=== PATIENT | male | born 1990 ===

== ENCOUNTER 2022-03-18 01:09 | Emergency (ER) | payer MEDICAID ==
[2022-03-18] MEDS ORDERED: Sodium Chloride 0.9% 10 ML Syringe FLUSH PRN (01:27)
[2022-03-18] MEDS ORDERED: Iopamidol 612 MG/ML 100 ML Bottle IVPUSH ONE (01:49)
[2022-03-18 02:08] LABS: ANION GAP 11.5 mEq/L (7-13); CHLORIDE,CL 104 mmol/L (98-107); ESTIMATED GFR 98 mL/min (>=60); SODIUM,NA 139 mmol/L (136-145)
[2022-03-18 03:05] LABS: CORONAVIRUS COVID-19 NAA NEGATIVE (NEGATIVE); RESPIRATORY SYNCYTIAL VIR NAA NEGATIVE (NEGATIVE)
== END 2022-03-18 04:09 | disposition home or self-care (01) ==
LOC: DL.ED 01:09
DX: R07.9 Chest pain, unspecified (principal); I10 Essential (primary) hypertension; Z79.899 Other long term (current) drug therapy; Z20.822 Contact with and (suspected) exposure to COVID-19
CPT/HCPCS: 0241U; 36415; 70450; 71045; 71260; 74177; 80053; 82150; 83605; 83690; 83735; 84100; 84439; 84443; 84484; 85025; 85610; 86140; 93005; 99285; J3490; Q9967

== ENCOUNTER 2022-10-11 11:29 | Emergency (ER) | payer MEDICAID | END 2022-10-11 12:25 | disposition home or self-care (01) | LOC: DL.ED 11:29 | DX: I10 Essential (primary) hypertension (principal); Z13.6 Encounter for screening for cardiovascular disorders | CPT/HCPCS: 99282; 99283 ==